=== PATIENT | male | born 1990 | race Caucasian/White ===

== ENCOUNTER 2020-03-16 20:35 | Emergency (ER) | payer OTHER ==
[~2020-03-16] VITALS: Ht 180.3 cm; Wt 93.9 kg
[~2020-03-16 20:35] MED LIST: CEPH500 PO; KETO10 PO; ONDA4ODT MM; PENVK500 PO
== END 2020-03-16 21:52 | disposition home or self-care (01) ==
LOC: ER 20:35
DX: S61.237A Puncture wound without foreign body of left little finger without damage to nail, initial encounter (principal); Z23 Encounter for immunization; W23.0XXA Caught, crushed, jammed, or pinched between moving objects, initial encounter; Y99.0 Civilian activity done for income or pay
CPT/HCPCS: 73140; 90471; 90714; 99283-25